=== PATIENT | female | born 1990 | race African-American/Black ===

== ENCOUNTER → 2024-03-24 | Day surgery (SDC) | payer SELFPAY ==
[2024-03-17 16:50] VITALS: BMI 25.4
[~2024-03-24] MED LIST: ACETAMINOPHEN INJECTION 100 ML ONE; DEXAMETHASONE SOD PHOSPHATE 4 MG/1 ML VIAL ONE; LACTATED RINGERS SOLUTION 1,000 ML IV SCH; LIDOCAINE HCL/PF 2% SDV 5ML VIAL ONE; ONDANSETRON 4 MG/2 ML VIAL IVPUSH PRN; ONDANSETRON 4 MG/2 ML VIAL ONE; PROMETHAZINE HCL 25 MG/1 ML VIAL IVPB PRN; PROPOFOL 0 ML ONE; ROCURONIUM BROMIDE 50 MG/5 ML SYRINGE ONE; SEVOFLURANE 250 ML BTL ONE; SUCCINYLCHOLINE CHLORIDE 200 MG/10 ML SYRINGE ONE; oxyCODONE HCL 5 MG TABLET PO PRN
[2024-03-24 06:57] VITALS: BP 97/59; PULSE 84; RESP 19; TEMP 98.6
[2024-03-24 07:56] LABS: INR 1.18 (0.83-1.09); PROTHROMBIN TIME (PATIENT) 13.4 SEC (9.7-13.0)
== END ==
LOC: FASU 06:19
PROVIDERS: ATTEND Surgery
CPT/HCPCS: 36415; 81025; 85610; J0131